=== PATIENT | male | born 1955 ===

== ENCOUNTER 2017-06-20 07:17 | Day surgery (SDC) | payer OTHER ==
[~2017-06-20 07:17] MED LIST: KEFLEX500 MG PO; ULTRACET PO
[2017-06-20] MEDS ORDERED: MIRALAX17 GM PO (15:38)
[2017-06-20] MEDS ORDERED: ZOFRAN ODT4 MG PO (15:38)
[2017-06-20] MEDS ORDERED: PERCOCET 5-3251 EACH PO (15:38)
[2017-06-20] MEDS ORDERED: NEURONTIN300 MG PO (15:38)
== END 2017-06-20 19:40 | disposition home or self-care (01) ==
LOC: CIR.AMB 07:17
DX: K40.91 Unilateral inguinal hernia, without obstruction or gangrene, recurrent (principal); K42.9 Umbilical hernia without obstruction or gangrene